=== PATIENT | female | born 1970 | race Caucasian/White ===

== ENCOUNTER 2020-11-08 12:28 | Emergency (ER) | payer BC | END 2020-11-08 13:22 | disposition home or self-care (01) | LOC: BURERS 12:28 | DX: T63.301A Toxic effect of unspecified spider venom, accidental (unintentional), initial encounter (principal); K21.9 Gastro-esophageal reflux disease without esophagitis; F17.210 Nicotine dependence, cigarettes, uncomplicated | CPT/HCPCS: 99282 ==